=== PATIENT | male | born 1960 | race Caucasian/White ===

== ENCOUNTER 2017-04-27 10:40 | Emergency (ER) | payer MEDICARE, MEDICAID ==
[2017-04-27 11:41] VITALS: BP 129/70
--- NOTE | 2017-04-27 13:22 | EDM.PDOC ---
ED HPI GENERAL MEDICAL PROBLEM - General Chief Complaint: General Stated Complaint: DETOX Time Seen by Provider: 04/27/17 11:30 Source of Information: Reports: Patient, Family - History of Present Illness INITIAL COMMENTS - FREE TEXT/NARRATIVE: This is a 56yo M here for alcoholism. He would like to go to detox. Patient is present with his brother. His last drink was last night. He has tried to quit in the past with severe tremors and withdraw symptoms. Duration: Chronic - Related Data Allergies Allergy/AdvReac Type Severity Reaction Status Date / Time aspirin Allergy Severe Nausea Verified 04/27/17 11:34 Home Meds: Home Meds lamoTRIgine [Lamotrigine] 25 mg PO DAILY 10/21/14 [History] ClonazePAM [KlonoPIN] 1 mg PO BID 04/27/17 [History] Omeprazole 20 mg PO DAILY 04/27/17 [History] Social & Family History - Tobacco Use Smoking Status *Q: Heavy Tobacco Smoker Years of Tobacco use: 30 Used Tobacco, but Quit: No Month Tobacco Last Used: October Second Hand Smoke Exposure: No - Alcohol Use Days Per Week of Alcohol Use: 7 Number of Drinks Per Day: 6 Total Drinks Per Week: 42 - Recreational Drug Use Recreational Drug Use: No ED ROS GENERAL - Review of Systems Review Of Systems: ROS reveals no pertinent complaints other than HPI. ED EXAM, GENERAL - Physical Exam Exam: See Below Exam Limited By: No Limitations General Appearance: Alert, WD/WN, No Apparent Distress Ears: Normal External Exam Nose: Normal Inspection Throat/Mouth: Normal Inspection Head: Atraumatic, Normocephalic Neck: Normal Inspection Respiratory/Chest: No Respiratory Distress, Lungs Clear, Normal Breath Sounds Cardiovascular: Normal Peripheral Pulses, Regular Rate, Rhythm Extremities: Normal Inspection Neurological: Alert, Oriented, CN II-XII Intact Course - Vital Signs Last Recorded V/S: Last Vital Signs Temp 37.0 C 04/27/17 11:29 Pulse 96 04/27/17 11:41 Resp BP 129/70 04/27/17 11:41 Pulse Ox 98 04/27/17 11:41 - Orders/Labs/Meds Labs: Laboratory Tests 04/27/17 04/27/17 04/27/17 Range/Units 11:15 11:30 11:30 WBC 4.5 (4.0-11.0) K/uL RBC 3.43 L (4.50-6.50) M/uL Hgb 11.3 L (13.0-18.0) g/dL Hct 32.0 L (40.0-54.0) % MCV 93 (76-96) fL MCH 32.9 H (27.0-32.0) pg MCHC 35.3 H (31.0-35.0) g/dL RDW 14.0 (11.0-16.0) % Plt Count 63 L D (150-400) K/uL MPV 10.6 H (6.0-10.0) fL Neut % (Auto) 70.1 H (45.0-70.0) % Lymph % (Auto) 14.5 L (20.0-40.0) % [place] % (Auto) 13.0 H (3.0-10.0) % Eos % (Auto) 1.1 (1.0-5.0) % Baso % (Auto) 1.3 H (0.0-0.5) % Neut # (Auto) 3.18 (2.00-7.50) K/uL Lymph # (Auto) 0.66 L (1.50-4.00) K/uL [place] # (Auto) 0.59 (0.20-0.80) K/uL Eos # (Auto) 0.05 (0.04-0.40) K/uL Baso # (Auto) 0.06 (0.02-0.10) K/uL Sodium 132 L (136-145) mmol/L Potassium 3.3 L (3.5-5.1) mmol/L Chloride 94 L (98-107) mmol/L Carbon Dioxide 22.4 (21.0-32.0) mmol/L Anion Gap 18.9 H (5.0-15.0) mmol/L BUN 9 (8-26) mg/dL Creatinine 0.76 (0.70-1.30) mg/dL Est Cr Clr Drug Dosing 97.48 mL/min Estimated GFR (MDRD) > 60 (>60) MLS/MIN BUN/Creatinine Ratio 11.8 (6-25) Glucose 101 H (74-100) mg/dL Calcium 9.0 (8.5-10.1) mg/dL Total Bilirubin 1.9 H D (0.0-1.0) mg/dL AST 124 H (15-37) U/L ALT 98 H (12-78) U/L Alkaline Phosphatase 140 H (46-116) U/L Total Protein 6.5 (6.4-8.2) g/dL Albumin 3.7 (3.4-5.0) g/dL Globulin 2.8 (2.2-4.2) g/dL Albumin/Globulin Ratio 1.3 (0.8-2.0) TSH, Ultra Sensitive 1.275 D (0.358-3.740) uIU/mL Urine Opiates Screen Negative (NEGATIVE) Ur Oxycodone Screen Negative (NEGATIVE) Urine Methadone Screen Negative (NEGATIVE) U Acetaminophen Screen Negative (NEGATIVE) Ur Barbiturates Screen Negative (NEGATIVE) Ur Tricyclics Screen Negative (NEGATIVE) Ur Phencyclidine Scrn Negative (NEGATIVE) Ur Amphetamine Screen Negative (NEGATIVE) U Methamphetamines Scrn Negative (NEGATIVE) U Benzodiazepines Scrn Negative (NEGATIVE) U Cocaine Metab Screen Negative (NEGATIVE) U Marijuana (THC) Screen Negative (NEGATIVE) Ethyl Alcohol 25.0 H (0.0-0.0) mg/dL Departure - Departure Time of Disposition: 13:00 Disposition: DC/Tfer to Inpt Rehab Fac 62 Condition: Good Clinical Impression: Alcohol abuse - Discharge Information Referrals: PCP,None [Primary Care Provider] - Forms: ED Department Discharge - Problem List & Annotations (1) Alcohol abuse SNOMED Code(s): 49986461 Code(s): F10.10 - ALCOHOL ABUSE, UNCOMPLICATED Status: Acute Current Visit: Yes - Problem List Review Problem List Initiated/Reviewed/Updated: Yes - Assessment/Plan Plan: Patient to be discharged for brother to take him to [facility]. Patient and brother agree with plan of care. Lab results given to patient for [facility]. Patient in very stable condition, no DT or signs of DT. He drank last night but has a low ETOH level. Informed [facility] or anemia and labs.
== END 2017-04-27 12:25 ==
LOC: LB.ED 10:40
DX: F10.10 Alcohol abuse, uncomplicated (principal); F17.200 Nicotine dependence, unspecified, uncomplicated; Z79.899 Other long term (current) drug therapy; Z88.6 Allergy status to analgesic agent; Y90.1 Blood alcohol level of 20-39 mg/100 ml
CPT/HCPCS: 36415; 80053; 80307; 84443; 85025; 99284; G0480; 99283

== ENCOUNTER 2018-02-13 08:52 | Emergency (ER) | payer MEDICARE, MEDICAID ==
[2018-02-13 09:19] VITALS: BP 110/68
--- NOTE | 2018-02-13 16:16 | ER ---
Date of Service: 02/13/2018 HISTORY OF PRESENT ILLNESS: The patient is a 57-year-old male who comes in today with a chief complaint of a bee sting. He notes it stung him on the left hand last night about 8 o'clock. His hand has fairly steadily swelled up since that time. He is not short of breath. He does not have any fevers or chills. The hand is a slightly tender, but not particularly painful. He has no other issues going. PHYSICAL EXAMINATION: GENERAL: He is alert, oriented, no apparent distress. VITAL SIGNS: Temperature is 97.7, blood pressure is 110/68, pulse is 74, respirations 18, O2 saturation is 97.1. EXTREMITIES: His hand is swollen over the knuckles and fingers, a little bit up on to the wrist. A couple of inches down on the wrist, there is minimal erythema. It is mildly warm and tender. There is no red streaking. ASSESSMENT: Bee sting, most likely it is secondary reaction to the bee sting. I did discuss with the patient that it is unlikely in this time frame that it is infected and it is much more likely to be a local reaction. He can take some Benadryl, put an ice pack on it, basically symptomatic treatment. If it is not getting better by tomorrow, would have him return to clinic or for worsening symptoms. RAÚL/VIKY /[id number] MTDD
== END 2018-02-13 09:28 | disposition home or self-care (01) ==
LOC: LB.ED 08:52
DX: T63.441A Toxic effect of venom of bees, accidental (unintentional), initial encounter (principal)
CPT/HCPCS: 99282

== ENCOUNTER 2019-11-13 23:06 | Emergency (ER) | payer MEDICARE, MEDICAID ==
[2019-11-13] MEDS ORDERED: Ketorolac 30 MG/ML SDV IM ONE (23:25)
[2019-11-13] MEDS ORDERED: Ketorolac 30 MG/ML SDV ONE (23:35)
[2019-11-14] MEDS ORDERED: Sodium Chloride 0.9% 10 ML Syringe FLUSH PRN (00:30)
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
[2019-11-14] MEDS: fentaNYL 100 MCG/2 ML SDV IVPUSH PRN ×2 (00:37→01:09)
[2019-11-14 02:42] VITALS: BP 117/79; PULSE 99
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
--- NOTE | 2019-11-14 07:51 | CR ---
DATE OF SERVICE: 11/13/19 CLINICAL DATA: hip pain LEFT HIP AND FEMUR: There is a healed fracture through the distal femoral diaphysis that is fixed internally with an intramedullary raji. There are mild osteoarthritic changes of the left hip joint. There is subtle lucency in the left subcapital femoral neck region. The possibility of a fracture should be considered. CT scan may be helpful. [id number] [facility]
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
== END 2019-11-14 03:30 ==
LOC: LB.ED 23:06
DX: S72.052A Unspecified fracture of head of left femur, initial encounter for closed fracture (principal); S00.83XA Contusion of other part of head, initial encounter; S00.31XA Abrasion of nose, initial encounter; S80.211A Abrasion, right knee, initial encounter; S80.212A Abrasion, left knee, initial encounter; Z88.8 Allergy status to other drugs, medicaments and biological substances; Z91.018 Allergy to other foods; Z79.899 Other long term (current) drug therapy; W01.0XXA Fall on same level from slipping, tripping and stumbling without subsequent striking against object, initial encounter; Y93.01 Activity, walking, marching and hiking
CPT/HCPCS: 70450; 73502; 73700; 96372; 96374; 96376; 99285; J1885; J3010

== ENCOUNTER 2019-11-21 11:07 | Inpatient (IN) | payer MEDICARE, MEDICAID ==
[2019-11-21] MEDS ORDERED: Albuterol/Ipratropium 3.0-0.5 MG/3 ML Neb Soln INH PRN (14:33)
[2019-11-21] MEDS: Ibuprofen 200 MG Tab PO PRN (20:34)
[2019-11-21] MEDS: oxyCODONE 5 MG Tab PO PRN (20:35)
[2019-11-21] MEDS: traZODone 50 MG Tab PO PRN (20:36)
[2019-11-21] MEDS: Calcium Carbonate/Vitamin D3 1500 MG-400 Units Tab PO SCH (21:23)
--- NOTE | 2019-11-22 02:17 | ADMIT ---
HISTORY OF PRESENT ILLNESS: This 58-year-old male was admitted on swing bed status this evening. He is status post ORIF of the left hip. Date of surgery, November 17, 2019. The patient fell and sustained a hip fracture as well as a contusion injury to the left side of the druze area. The patient tells me that his pain is a little worse, but because of the trip here from the surgical center, he does have pain medications and states they have been working. The patient tells me he is able to walk with a walker a little bit now enough to get around in the room and going to the bathroom. He rates his pain a 7/10. The patient tells me he feels alright. PHYSICAL EXAMINATION: VITAL SIGNS: Revealed temp 97.8, blood pressure 154/89, O2 sats 99%, pulse 89, respirations 18. Examining the patient's left hip area reveals an incision on the lateral aspect of the upper thigh that is covered with a dressing. The dressing is intact. There is no sign of redness around the dressing. There is some bruising on the posterior aspect of the proximal thigh. The patient has no numbness, tingling or pain distal to the knee. LUNGS: Clear. SKIN: Warm and dry. The patient is admitted for swing bed status mainly for PT and OT. This will be ordered tomorrow I believe. No further measures are needed at this time. CHARLOTTE/VIKY /[id number]
[2019-11-22] MEDS ORDERED: Tuberculin, PPD 5 Units/0.1 ML 1 ML MDV IDERM ONE (08:00)
[2019-11-22] MEDS: Omeprazole 20 MG Cap.CR PO SCH (08:07)
[2019-11-22] MEDS: Calcium Carbonate/Vitamin D3 1500 MG-400 Units Tab PO SCH ×2 (08:07→18:18)
[2019-11-22] MEDS: Cholecalciferol (Vitamin D3) 25 MCG Tab PO SCH (08:08)
[2019-11-22] MEDS: lamoTRIgine 25 MG Tab PO SCH (08:11)
[2019-11-22] MEDS: Enoxaparin 40 MG/0.4 ML Syringe SUBCUT SCH (08:18)
--- NOTE | 2019-11-22 09:17 | PCM.PN ---
- General Info Date of Service: 11/22/19 Subjective Update: pt admitted last night for swing bed status from [place], [place] post surgical ORIF L hip [id number]. pt states overall he is feeling better, not reaching his baseline from before injury quite yet. Functional Status: Reports: Pain Controlled, Tolerating Diet, Ambulating, Urinating, Incentive Spirometry - Review of Systems General: Reports: Weakness (left leg weakness) HEENT: Reports: No Symptoms Pulmonary: Reports: No Symptoms Cardiovascular: Reports: No Symptoms Gastrointestinal: Reports: No Symptoms Genitourinary: Reports: No Symptoms Musculoskeletal: Reports: Leg Pain (some surgical incision site pain) Skin: Reports: No Symptoms Neurological: Reports: No Symptoms Psychiatric: Reports: No Symptoms - Patient Data Vitals - Most Recent: Last Vital Signs Temp 97.6 F 11/22/19 08:00 Pulse 99 11/22/19 08:00 Resp 16 11/22/19 08:00 BP 145/86 H 11/22/19 08:00 Pulse Ox 94 L 11/22/19 08:00 Weight - Most Recent: 123 lb 6.4 oz Lab Results Last 24 Hours: Laboratory Results - last 24 hr 11/22/19 11/22/19 Range/Units 07:20 07:20 WBC 4.1 D (4.0-11.0) K/uL RBC 2.67 L (4.50-6.50) M/uL Hgb 8.8 L D (13.0-18.0) g/dL Hct 25.6 L D (40.0-54.0) % MCV 96 (76-96) fL MCH 33.0 H (27.0-32.0) pg MCHC 34.4 (31.0-35.0) g/dL RDW 13.4 (11.0-16.0) % Plt Count 400 D (150-400) K/uL MPV 8.9 (6.0-10.0) fL Neut % (Auto) 55.8 (45.0-70.0) % Lymph % (Auto) 20.6 (20.0-40.0) % [place] % (Auto) 21.9 H (3.0-10.0) % Eos % (Auto) 0.7 L (1.0-5.0) % Baso % (Auto) 1.0 H (0.0-0.5) % Neut # (Auto) 2.27 (2.00-7.50) K/uL Lymph # (Auto) 0.84 L (1.50-4.00) K/uL [place] # (Auto) 0.89 H (0.20-0.80) K/uL Eos # (Auto) 0.03 L (0.04-0.40) K/uL Baso # (Auto) 0.04 (0.02-0.10) K/uL Sodium 140 (136-145) mmol/L Potassium 3.3 L D (3.5-5.1) mmol/L Chloride 102 (98-107) mmol/L Carbon Dioxide 32.3 H D (21.0-32.0) mmol/L Anion Gap 9.0 (5.0-15.0) mmol/L BUN 5 L D (8-26) mg/dL Creatinine 0.61 L D (0.70-1.30) mg/dL Est Cr Clr Drug Dosing 104.50 mL/min Estimated GFR (MDRD) > 60 (>60) MLS/MIN BUN/Creatinine Ratio 8.2 (6-25) Glucose 106 H D (74-100) mg/dL Calcium 8.0 L (8.5-10.1) mg/dL Med Orders - Current: Current Medications Albuterol (Ventolin Hfa) 8 gm INH Q6H PRN PRN Reason: Shortness of Breath Albuterol/Ipratropium (Duoneb 3.0-0.5 Mg/3 Ml) 3 ml INH QID PRN PRN Reason: Shortness of Breath Calcium Carbonate (Caltrate 600+D 1500 Mg-400 Units) 1 tab PO BIDMEALS [facility] Last Admin: 11/22/19 08:07 Dose: 1 tab Cholecalciferol (Vitamin D3) 25 mcg PO DAILY [facility] Last Admin: 11/22/19 08:08 Dose: 25 mcg Enoxaparin Sodium (Lovenox) 40 mg SUBCUT DAILY [facility] Stop: 12/18/19 23:59 Last Admin: 11/22/19 08:18 Dose: 40 mg Ibuprofen (Motrin) 200 mg PO DAILY PRN PRN Reason: Pain (mild 1-3) Last Admin: 11/21/19 20:34 Dose: 200 mg Lamotrigine (Lamotrigine) 25 mg PO DAILY [facility] Last Admin: 11/22/19 08:11 Dose: 25 mg Omeprazole (Omeprazole) 20 mg PO DAILY [facility] Last Admin: 11/22/19 08:07 Dose: 20 mg Oxycodone HCl (Oxycodone) 5 mg PO Q6H PRN PRN Reason: MODERATE PAIN Last Admin: 11/21/19 20:35 Dose: 5 mg Potassium Chloride (Klor-Con 10) 10 meq PO BID [facility] Senna/Docusate Sodium (Senna Plus) 2 tab PO BID [facility] Last Admin: 11/22/19 08:07 Dose: 2 tab Trazodone HCl (Trazodone) 50 mg PO BEDTIME PRN PRN Reason: INSOMNIA Last Admin: 11/21/19 20:36 Dose: 50 mg Discontinued Medications Tuberculin PPD (Aplisol) 5 unit IDERM ONETIME ONE Stop: 11/22/19 08:01 Last Admin: 11/22/19 08:49 Dose: 5 unit - Exam General: Alert, Oriented, Cooperative HEENT: Pupils Equal, Pupils Reactive, EOMI, Mucous Membr. Moist/[place] Neck: Supple Lungs: Normal Respiratory Effort, Wheezing (slight expiratory wheeze) Cardiovascular: Regular Rate, Regular Rhythm GI/Abdominal Exam: Normal Bowel Sounds, Soft, Non-Tender, No Organomegaly, No Distention, No Abnormal Bruit, No Mass, Pelvis Stable (Male) Exam: No Hernia, Normal Inspection, Normal Prostate, Circumcised Back Exam: Normal Inspection, Full Range of Motion Extremities: Normal Inspection, Normal Range of Motion, Non-Tender, No Pedal Edema, Normal Capillary Refill Peripheral Pulses: 2+: Radial (L), Radial (R), Posterior Tibial (L), Posterior Tibial (R) Skin: Warm, Dry, Intact Wound/Incisions: Healing Well, Dressing Dry and Intact (no surrounding edema or erythema) Neurological: No New Focal Deficit Psy/Mental Status: Alert, Normal Affect, Normal Mood Sepsis Event Note - Evaluation Sepsis Screening Result: No Definite Risk - Focused Exam Vital Signs: Vital Signs Temp Pulse Resp BP Pulse Ox 11/22/19 08:00 97.6 F 99 16 145/86 H 94 L Date Exam was Performed: 11/22/19 Time Exam was Performed: 10:33 - Problem List & Annotations (1) Fracture of femoral head SNOMED Code(s): 975202192 Code(s): S72.059A - UNSP FRACTURE OF HEAD OF UNSP FEMUR, INIT FOR CLOS FX Status: Acute Priority: High Current Visit: Yes Qualifiers: Fracture type: closed Laterality: left Fracture healing: with routine healing - Problem List Review Problem List Initiated/Reviewed/Updated: Yes - My Orders Last 24 Hours: My Active Orders 11/22/19 08:24 OT Evaluation and Treatment [CONS] Routine PT Evaluation and Treatment [CONS] Routine 11/22/19 20:00 Potassium Chloride [Klor-Con 10] 10 meq PO BID - Assessment Assessment:: Status post ORIF left hip fracture from surgery 17 November 2019. - Plan Plan:: Admit swing bed status for PT/OT strengthening of activities daily living, anti- inflammatories for pain control, dressing changes as needed.
[2019-11-22] MEDS: Potassium Chloride 10 MEQ Tab.ER PO SCH (19:54)
[2019-11-22] MEDS: oxyCODONE 5 MG Tab PO PRN (19:54)
[2019-11-22] MEDS: traZODone 50 MG Tab PO PRN (19:54)
[2019-11-23] MEDS: oxyCODONE 5 MG Tab PO PRN ×3 (04:34→22:12)
[2019-11-23] MEDS: Ibuprofen 200 MG Tab PO PRN ×2 (04:35→09:31)
[2019-11-23] MEDS: Calcium Carbonate/Vitamin D3 1500 MG-400 Units Tab PO SCH ×2 (08:02→19:09)
[2019-11-23] MEDS: Potassium Chloride 10 MEQ Tab.ER PO SCH ×2 (08:03→19:08)
[2019-11-23] MEDS: lamoTRIgine 25 MG Tab PO SCH (08:03)
[2019-11-23] MEDS: Cholecalciferol (Vitamin D3) 25 MCG Tab PO SCH (08:04)
[2019-11-23] MEDS: Omeprazole 20 MG Cap.CR PO SCH (08:04)
[2019-11-23] MEDS: Enoxaparin 40 MG/0.4 ML Syringe SUBCUT SCH (08:06)
[2019-11-24] MEDS: oxyCODONE 5 MG Tab PO PRN ×2 (07:52→13:49)
[2019-11-24] MEDS: Ibuprofen 200 MG Tab PO PRN ×3 (07:55→20:40)
[2019-11-24] MEDS: Potassium Chloride 10 MEQ Tab.ER PO SCH ×2 (07:56→23:05)
[2019-11-24] MEDS: Omeprazole 20 MG Cap.CR PO SCH (07:57)
[2019-11-24] MEDS: Calcium Carbonate/Vitamin D3 1500 MG-400 Units Tab PO SCH ×2 (07:57→18:19)
[2019-11-24] MEDS: Cholecalciferol (Vitamin D3) 25 MCG Tab PO SCH (07:58)
[2019-11-24] MEDS: lamoTRIgine 25 MG Tab PO SCH (07:59)
[2019-11-24] MEDS: Enoxaparin 40 MG/0.4 ML Syringe SUBCUT SCH (08:00)
[2019-11-24] MEDS ORDERED: Acetaminophen 325 MG Tab PO PRN (14:02)
[2019-11-25] MEDS: oxyCODONE 5 MG Tab PO PRN (07:48)
[2019-11-25] MEDS: Omeprazole 20 MG Cap.CR PO SCH (07:48)
[2019-11-25] MEDS: lamoTRIgine 25 MG Tab PO SCH (07:48)
[2019-11-25] MEDS: Potassium Chloride 10 MEQ Tab.ER PO SCH ×2 (07:48→20:41)
[2019-11-25] MEDS: Calcium Carbonate/Vitamin D3 1500 MG-400 Units Tab PO SCH ×2 (07:48→17:28)
[2019-11-25] MEDS: Cholecalciferol (Vitamin D3) 25 MCG Tab PO SCH (07:48)
[2019-11-25] MEDS: Enoxaparin 40 MG/0.4 ML Syringe SUBCUT SCH (07:49)
[2019-11-26] MEDS: oxyCODONE 5 MG Tab PO PRN ×2 (00:21→23:44)
[2019-11-26] MEDS: Calcium Carbonate/Vitamin D3 1500 MG-400 Units Tab PO SCH ×2 (07:57→17:05)
[2019-11-26] MEDS: Enoxaparin 40 MG/0.4 ML Syringe SUBCUT SCH (07:57)
[2019-11-26] MEDS: lamoTRIgine 25 MG Tab PO SCH (07:57)
[2019-11-26] MEDS: Cholecalciferol (Vitamin D3) 25 MCG Tab PO SCH (07:57)
[2019-11-26] MEDS: Omeprazole 20 MG Cap.CR PO SCH (07:57)
[2019-11-26] MEDS: Potassium Chloride 10 MEQ Tab.ER PO SCH ×2 (07:57→21:00)
[2019-11-26] MEDS: Ibuprofen 200 MG Tab PO PRN (13:26)
[2019-11-27] MEDS: lamoTRIgine 25 MG Tab PO SCH (07:18)
[2019-11-27] MEDS: Potassium Chloride 10 MEQ Tab.ER PO SCH ×2 (07:18→19:29)
[2019-11-27] MEDS: Cholecalciferol (Vitamin D3) 25 MCG Tab PO SCH (07:18)
[2019-11-27] MEDS: Calcium Carbonate/Vitamin D3 1500 MG-400 Units Tab PO SCH ×2 (07:18→17:55)
[2019-11-27] MEDS: Omeprazole 20 MG Cap.CR PO SCH (07:18)
[2019-11-27] MEDS: Enoxaparin 40 MG/0.4 ML Syringe SUBCUT SCH (07:19)
[2019-11-27] MEDS: oxyCODONE 5 MG Tab PO PRN ×3 (07:28→19:28)
[2019-11-27] MEDS ORDERED: Acetaminophen/HYDROcodone 325-10 MG Tab ONE (10:54)
[2019-11-27] MEDS ORDERED: Acetaminophen/HYDROcodone 325-5 MG Tab ONE (10:55)
[2019-11-27] MEDS: Ibuprofen 200 MG Tab PO PRN (15:33)
[2019-11-28] MEDS: Ibuprofen 200 MG Tab PO PRN ×2 (08:29→14:10)
[2019-11-28] MEDS: Potassium Chloride 10 MEQ Tab.ER PO SCH ×2 (08:29→19:29)
[2019-11-28] MEDS: Omeprazole 20 MG Cap.CR PO SCH (08:29)
[2019-11-28] MEDS: Calcium Carbonate/Vitamin D3 1500 MG-400 Units Tab PO SCH ×2 (08:31→17:37)
[2019-11-28] MEDS: Enoxaparin 40 MG/0.4 ML Syringe SUBCUT SCH (08:31)
[2019-11-28] MEDS: lamoTRIgine 25 MG Tab PO SCH (08:31)
[2019-11-28] MEDS: Cholecalciferol (Vitamin D3) 25 MCG Tab PO SCH (08:32)
--- NOTE | 2019-11-28 11:06 | CR ---
DATE OF SERVICE: 11/28/19 CLINICAL DATA: post op day 11, worsening L hip pain LEFT HIP: Comparison is made to a prior exam dated 11/13/19. The patient is status post internal fixation of the left hip fracture. The fracture fragments are in anatomic alignment and position. The exam is otherwise unchanged from the prior. [id number] [facility]
[2019-11-29] MEDS: Cholecalciferol (Vitamin D3) 25 MCG Tab PO SCH (08:00)
[2019-11-29] MEDS: Potassium Chloride 10 MEQ Tab.ER PO SCH ×2 (08:00→20:29)
[2019-11-29] MEDS: Omeprazole 20 MG Cap.CR PO SCH (08:00)
[2019-11-29] MEDS: Enoxaparin 40 MG/0.4 ML Syringe SUBCUT SCH (08:00)
[2019-11-29] MEDS: lamoTRIgine 25 MG Tab PO SCH (08:00)
[2019-11-29] MEDS: Calcium Carbonate/Vitamin D3 1500 MG-400 Units Tab PO SCH ×2 (08:00→17:00)
[2019-11-29] MEDS: oxyCODONE 5 MG Tab PO PRN (23:37)
[2019-11-30] MEDS: Omeprazole 20 MG Cap.CR PO SCH (07:32)
[2019-11-30] MEDS: Potassium Chloride 10 MEQ Tab.ER PO SCH ×2 (07:33→19:25)
[2019-11-30] MEDS: lamoTRIgine 25 MG Tab PO SCH (07:33)
[2019-11-30] MEDS: Calcium Carbonate/Vitamin D3 1500 MG-400 Units Tab PO SCH ×2 (07:33→17:46)
[2019-11-30] MEDS: Cholecalciferol (Vitamin D3) 25 MCG Tab PO SCH (07:33)
[2019-11-30] MEDS: Enoxaparin 40 MG/0.4 ML Syringe SUBCUT SCH (07:34)
[2019-11-30] MEDS: Albuterol 8 GM Inhaler INH PRN (07:35)
[2019-11-30] MEDS: oxyCODONE 5 MG Tab PO PRN ×3 (07:36→22:06)
[2019-12-01] MEDS: oxyCODONE 5 MG Tab PO PRN (07:43)
[2019-12-01] MEDS: Calcium Carbonate/Vitamin D3 1500 MG-400 Units Tab PO SCH ×2 (07:43→17:00)
[2019-12-01] MEDS: Omeprazole 20 MG Cap.CR PO SCH (07:43)
[2019-12-01] MEDS: Potassium Chloride 10 MEQ Tab.ER PO SCH ×2 (07:44→19:22)
[2019-12-01] MEDS: Cholecalciferol (Vitamin D3) 25 MCG Tab PO SCH (07:44)
[2019-12-01] MEDS: Enoxaparin 40 MG/0.4 ML Syringe SUBCUT SCH (07:44)
[2019-12-01] MEDS: lamoTRIgine 25 MG Tab PO SCH (07:44)
--- NOTE | 2019-12-01 11:07 | PCM.DCSUM1 ---
Discharge Summary - Hospital Course Free Text/Narrative:: pt has been swingbed since 21 November and working with PT and OT since after ORIF left hip surgery 17 November 2019. initially pt was struggling with pain prior to therapy but has since improved greatly and currently only needing 2-3 tabs of oxycodone per day. on 27 November pt stated new hip pain when initiating ambulation, with concern for onset of osteonecrosis with pt's history of alcoholism a xray of left hip was done showing no changes from previous. later that day pt states his symptoms had improved after standing momentarily prior to ambulation. symptoms have mostly resolved since. pt was D/C from OT yesterday after successful meal cooking. will be d/c from PT today. plan to discharge from swingbed home tomorrow after lunch. - Discharge Data Discharge Date: 12/02/19 Discharge Disposition: Home, Self-Care 01 Condition: Good - Referral to Home Health Primary Care Physician: PCP None - Discharge Diagnosis/Problem(s) (1) Fracture of femoral head SNOMED Code(s): 472070904 ICD Code: S72.059A - UNSP FRACTURE OF HEAD OF UNSP FEMUR, INIT FOR CLOS FX Status: Acute Priority: High Current Visit: Yes Qualifiers: Fracture type: closed Laterality: left Fracture healing: with routine healing - Patient Summary/Data Consults: Consultations 11/22/19 08:24 OT Evaluation and Treatment [CONS] Routine Please Evaluate and Treat. OT Reason for Consult: Strengthening This query below is only for informational purposes and is not editable. Admission Diagnosis/Problem: Weakness of left lower extremity PT Evaluation and Treatment [CONS] Routine Please Evaluate and Treat. PT Reason for Consult: Strengthening This query below is only for informational purposes and is not editable. Admission Diagnosis/Problem: Weakness of left lower extremity - Patient Instructions Diet: Usual Diet as Tolerated Activity: As Tolerated Showering/Bathing: May Shower Wound/Incision Care: Keep Operative Site/Wound Site Clean and Dry Notify Provider of: Fever, Swelling and Redness, Drainage - Discharge Plan *PRESCRIPTION DRUG MONITORING PROGRAM REVIEWED*: Yes *COPY OF PRESCRIPTION DRUG MONITORING REPORT IN PATIENT IWONA: No Prescriptions/Med Rec: Aspirin 325 mg PO DAILY #30 tab Calcium Carbonate/Vitamin D3 [Caltrate 600+D 1500 MG-400 Units] 1 tab PO BIDMEALS #60 tablet Potassium Chloride [Klor-Con 10] 10 meq PO BID #60 tab.er oxyCODONE 5 mg PO TID PRN #12 tablet PRN Reason: MODERATE PAIN Albuterol [Ventolin HFA] 8 gm INH Q6H PRN #1 inhaler PRN Reason: Shortness Of Breath Cholecalciferol (Vitamin D3) [Vitamin D3] 25 mcg PO DAILY #30 tablet Home Medications: Home Meds lamoTRIgine [Lamotrigine] 25 mg PO DAILY 10/21/14 [History] ClonazePAM [KlonoPIN] 1 mg PO BID 04/27/17 [History] Omeprazole 20 mg PO DAILY 04/27/17 [History] Albuterol [Proventil Neb Soln] 0.63 mg NEB TID 02/13/18 [History] Acetaminophen [Tylenol] 650 mg PO Q6H PRN tablet 12/01/19 [Rx] Albuterol [Ventolin HFA] 8 gm INH Q6H PRN #1 inhaler 12/01/19 [Rx] Aspirin 325 mg PO DAILY #30 tab 12/01/19 [Rx] Calcium Carbonate/Vitamin D3 [Caltrate 600+D 1500 MG-400 Units] 1 tab PO BIDMEALS #60 tablet 12/01/19 [Rx] Cholecalciferol (Vitamin D3) [Vitamin D3] 25 mcg PO DAILY #30 tablet 12/01/19 [Rx] Ibuprofen [Motrin] 600 mg PO Q6H PRN tablet 12/01/19 [Rx] Omeprazole 20 mg PO DAILY cap.cr 12/01/19 [Rx] Potassium Chloride [Klor-Con 10] 10 meq PO BID #60 tab.er 12/01/19 [Rx] lamoTRIgine 25 mg PO DAILY tablet 12/01/19 [Rx] oxyCODONE 5 mg PO TID PRN #12 tablet 12/01/19 [Rx] Oxygen Therapy Mode: Room Air - Discharge Summary/Plan Comment DC Time >30 min.: Yes Discharge Summary/Plan Comment: pt will follow up with orthopedics January 03 in [place] PT as outpatient recommend follow up with PCP in the next 3-4 weeks buy a walking cane, if desired lizeth have been removed, keep this area clean and dry. steri strips applied and will fall off in next 5-7 days on their own. new RX: ASA 325 QD for the next month Vit D3 25mcg QD 30 days albuterol INH Kdur 10mEq BID 30 days Ca Carbonate/ vit D3 BID 30 days 2-wheeled walker - Patient Data Vitals - Most Recent: Last Vital Signs Temp 97.7 F 12/01/19 07:47 Pulse 90 12/01/19 07:47 Resp 16 12/01/19 07:47 BP 140/87 12/01/19 07:47 Pulse Ox 98 12/01/19 07:47 Weight - Most Recent: 123 lb Med Orders - Current: Current Medications Acetaminophen (Tylenol) 650 mg PO Q6H PRN PRN Reason: Pain Last Admin: 11/24/19 23:08 Dose: 650 mg Documented by: Albuterol (Ventolin Hfa) 8 gm INH Q6H PRN PRN Reason: Shortness of Breath Last Admin: 11/30/19 07:35 Dose: 2 puff Documented by: Albuterol/Ipratropium (Duoneb 3.0-0.5 Mg/3 Ml) 3 ml INH QID PRN PRN Reason: Shortness of Breath Calcium Carbonate (Caltrate 600+D 1500 Mg-400 Units) 1 tab PO BIDMEALS [facility] Last Admin: 12/01/19 07:43 Dose: 1 tab Documented by: Cholecalciferol (Vitamin D3) 25 mcg PO DAILY [facility] Last Admin: 12/01/19 07:44 Dose: 25 mcg Documented by: Enoxaparin Sodium (Lovenox) 40 mg SUBCUT DAILY [facility] Stop: 12/18/19 23:59 Last Admin: 12/01/19 07:44 Dose: 40 mg Documented by: Ibuprofen (Motrin) 200 mg PO DAILY PRN PRN Reason: Pain (mild 1-3) Last Admin: 11/24/19 07:55 Dose: 200 mg Documented by: Ibuprofen (Motrin) 600 mg PO Q6H PRN PRN Reason: Pain Last Admin: 11/28/19 14:10 Dose: 600 mg Documented by: Lamotrigine (Lamotrigine) 25 mg PO DAILY [facility] Last Admin: 12/01/19 07:44 Dose: 25 mg Documented by: Omeprazole (Omeprazole) 20 mg PO DAILY [facility] Last Admin: 12/01/19 07:43 Dose: 20 mg Documented by: Oxycodone HCl (Oxycodone) 5 mg PO Q6H PRN PRN Reason: MODERATE PAIN Last Admin: 12/01/19 07:43 Dose: 5 mg Documented by: Potassium Chloride (Klor-Con 10) 10 meq PO BID [facility] Last Admin: 12/01/19 07:44 Dose: 10 meq Documented by: Senna/Docusate Sodium (Senna Plus) 2 tab PO BID PRN PRN Reason: Diarrhea Trazodone HCl (Trazodone) 50 mg PO BEDTIME PRN PRN Reason: INSOMNIA Last Admin: 11/22/19 19:54 Dose: 50 mg Documented by: Discontinued Medications Hydrocodone Bitart/Acetaminophen ([place] 325-10 Mg) Confirm Administered Dose 1 tab .ROUTE .STK-MED ONE Stop: 11/27/19 10:55 Last Admin: 11/27/19 15:28 Dose: Not Given Documented by: Hydrocodone Bitart/Acetaminophen ([place] 325-5 Mg) Confirm Administered Dose 1 tab .ROUTE .STK-MED ONE Stop: 11/27/19 10:56 Last Admin: 11/27/19 15:28 Dose: Not Given Documented by: Senna/Docusate Sodium (Senna Plus) 2 tab PO BID [facility] Last Admin: 11/24/19 07:56 Dose: 2 tab Documented by: Tuberculin PPD (Aplisol) 5 unit IDERM ONETIME ONE Stop: 11/22/19 08:01 Last Admin: 11/22/19 08:49 Dose: 5 unit Documented by: Discharge Operative/Procedures - Procedures Performed Operations/Procedure Comment: removal of lizeth: dressing removed, cleansed area with soapy water. 15 lizeth removed successfully. benzoin tincture applied surrounding site and steri strips applied. wound left open to air. pt tolerated well.
[2019-12-01] MEDS: Ibuprofen 200 MG Tab PO PRN (17:00)
[2019-12-02] MEDS: oxyCODONE 5 MG Tab PO PRN (07:41)
[2019-12-02] MEDS: Omeprazole 20 MG Cap.CR PO SCH (07:41)
[2019-12-02] MEDS: Calcium Carbonate/Vitamin D3 1500 MG-400 Units Tab PO SCH ×2 (07:42→17:04)
[2019-12-02] MEDS: lamoTRIgine 25 MG Tab PO SCH (07:42)
[2019-12-02] MEDS: Enoxaparin 40 MG/0.4 ML Syringe SUBCUT SCH (07:42)
[2019-12-02] MEDS: Potassium Chloride 10 MEQ Tab.ER PO SCH ×2 (07:42→19:01)
[2019-12-02] MEDS: Cholecalciferol (Vitamin D3) 25 MCG Tab PO SCH (07:43)
[2019-12-02] MEDS: Albuterol 8 GM Inhaler INH PRN (14:15)
[2019-12-03] MEDS: oxyCODONE 5 MG Tab PO PRN ×2 (07:22→19:52)
[2019-12-03] MEDS: Omeprazole 20 MG Cap.CR PO SCH (07:23)
[2019-12-03] MEDS: Potassium Chloride 10 MEQ Tab.ER PO SCH ×2 (07:24→19:53)
[2019-12-03] MEDS: Cholecalciferol (Vitamin D3) 25 MCG Tab PO SCH (07:24)
[2019-12-03] MEDS: lamoTRIgine 25 MG Tab PO SCH (07:24)
[2019-12-03] MEDS: Enoxaparin 40 MG/0.4 ML Syringe SUBCUT SCH (07:24)
[2019-12-03] MEDS: Calcium Carbonate/Vitamin D3 1500 MG-400 Units Tab PO SCH ×2 (07:24→17:06)
[2019-12-04] MEDS: Calcium Carbonate/Vitamin D3 1500 MG-400 Units Tab PO SCH ×2 (07:31→17:35)
[2019-12-04] MEDS: Omeprazole 20 MG Cap.CR PO SCH (07:31)
[2019-12-04] MEDS: Cholecalciferol (Vitamin D3) 25 MCG Tab PO SCH (07:31)
[2019-12-04] MEDS: Enoxaparin 40 MG/0.4 ML Syringe SUBCUT SCH (07:32)
[2019-12-04] MEDS: lamoTRIgine 25 MG Tab PO SCH (07:32)
[2019-12-04] MEDS: Potassium Chloride 10 MEQ Tab.ER PO SCH ×2 (08:04→19:47)
[2019-12-04] MEDS: Ibuprofen 200 MG Tab PO PRN ×2 (10:43→18:08)
[2019-12-05] MEDS: Calcium Carbonate/Vitamin D3 1500 MG-400 Units Tab PO SCH (07:30)
[2019-12-05] MEDS: Potassium Chloride 10 MEQ Tab.ER PO SCH (07:30)
[2019-12-05] MEDS: Omeprazole 20 MG Cap.CR PO SCH (07:30)
[2019-12-05] MEDS: lamoTRIgine 25 MG Tab PO SCH (07:30)
[2019-12-05] MEDS: Cholecalciferol (Vitamin D3) 25 MCG Tab PO SCH (07:31)
[2019-12-05] MEDS: Enoxaparin 40 MG/0.4 ML Syringe SUBCUT SCH (07:31)
[2019-12-05 08:26] VITALS: BP 127/78; PULSE 73
--- NOTE | 2019-12-05 12:45 | PCM.DCSUM1 ---
Discharge Summary - Hospital Course Free Text/Narrative:: Patient is a swing bed from ORIF left hip on 17 November 2019, he was originally slated for discharge home this last weekend but hospital staff abruptly learned that patient is not his own guardian but that his brother holds guardianship due to patient's mental health history. Although patient had stated readiness for discharge, he would share concerns with family members differently. By 30 November patient was although physically ready for discharge he was not mentally and would not have been a safe discharge home secondary to his mental health and lack of at home resources throughout the weekend. Patient's brother had set up resources for discharge today, patient will be discharging home with outpatient physical therapy, community nursing services, and newly set up telephone sources and life alert button patient will keep on himself in case of emergencies. - Discharge Data Discharge Date: 12/05/19 Discharge Disposition: Home, Self-Care 01 Condition: Good - Referral to Home Health Primary Care Physician: PCP None - Discharge Diagnosis/Problem(s) (1) Fracture of femoral head SNOMED Code(s): 249282996 ICD Code: S72.059A - UNSP FRACTURE OF HEAD OF UNSP FEMUR, INIT FOR CLOS FX Status: Acute Priority: High Qualifiers: Fracture type: closed Laterality: left Fracture healing: with routine healing - Patient Summary/Data Consults: Consultations 11/22/19 08:24 OT Evaluation and Treatment [CONS] Routine Please Evaluate and Treat. OT Reason for Consult: Strengthening This query below is only for informational purposes and is not editable. Admission Diagnosis/Problem: Weakness of left lower extremity PT Evaluation and Treatment [CONS] Routine Please Evaluate and Treat. PT Reason for Consult: Strengthening This query below is only for informational purposes and is not editable. Admission Diagnosis/Problem: Weakness of left lower extremity - Patient Instructions Diet: Usual Diet as Tolerated Activity: As Tolerated Showering/Bathing: May Shower Wound/Incision Care: Keep Operative Site/Wound Site Clean and Dry Notify Provider of: Fever, Swelling and Redness, Drainage - Discharge Plan *PRESCRIPTION DRUG MONITORING PROGRAM REVIEWED*: Yes *COPY OF PRESCRIPTION DRUG MONITORING REPORT IN PATIENT IWONA: No Prescriptions/Med Rec: Aspirin 325 mg PO DAILY #30 tab Calcium Carbonate/Vitamin D3 [Caltrate 600+D 1500 MG-400 Units] 1 tab PO BIDMEALS #60 tablet Potassium Chloride [Klor-Con 10] 10 meq PO BID #60 tab.er oxyCODONE 5 mg PO TID PRN #12 tablet PRN Reason: MODERATE PAIN Albuterol [Ventolin HFA] 8 gm INH Q6H PRN #1 inhaler PRN Reason: Shortness Of Breath Cholecalciferol (Vitamin D3) [Vitamin D3] 25 mcg PO DAILY #30 tablet Home Medications: Home Meds lamoTRIgine [Lamotrigine] 25 mg PO DAILY 10/21/14 [History] ClonazePAM [KlonoPIN] 1 mg PO BID 04/27/17 [History] Omeprazole 20 mg PO DAILY 04/27/17 [History] Albuterol [Proventil Neb Soln] 0.63 mg NEB TID 02/13/18 [History] Acetaminophen [Tylenol] 650 mg PO Q6H PRN tablet 12/01/19 [Rx] Albuterol [Ventolin HFA] 8 gm INH Q6H PRN #1 inhaler 12/01/19 [Rx] Aspirin 325 mg PO DAILY #30 tab 12/01/19 [Rx] Calcium Carbonate/Vitamin D3 [Caltrate 600+D 1500 MG-400 Units] 1 tab PO BIDMEALS #60 tablet 12/01/19 [Rx] Cholecalciferol (Vitamin D3) [Vitamin D3] 25 mcg PO DAILY #30 tablet 12/01/19 [Rx] Ibuprofen [Motrin] 600 mg PO Q6H PRN tablet 12/01/19 [Rx] Omeprazole 20 mg PO DAILY cap.cr 12/01/19 [Rx] Potassium Chloride [Klor-Con 10] 10 meq PO BID #60 tab.er 12/01/19 [Rx] lamoTRIgine 25 mg PO DAILY tablet 12/01/19 [Rx] oxyCODONE 5 mg PO TID PRN #12 tablet 12/01/19 [Rx] Oxygen Therapy Mode: Room Air - Discharge Summary/Plan Comment DC Time >30 min.: Yes - General Info Date of Service: 12/05/19 Admission Dx/Problem (Free Text: swingbed for PT/OT strengthening and ADLs post ORIF left hip on 17 November 2019. Subjective Update: pt admitted last night for swing bed status from [place], [place] post surgical ORIF L hip [id number]. pt states overall he is feeling great, he is highly motivated to be discharged home to continue outpatient services and rehab from his surgery. Patient denies new fevers, shortness of breath, worsening hip pain, drainage, new difficulties with ambulation. - Review of Systems General: Reports: Other (All other systems reviewed and found negative except for what is noted in HPI) - Patient Data Vitals - Most Recent: Last Vital Signs Temp 98.4 F 12/05/19 08:00 Pulse 73 12/05/19 08:00 Resp 16 12/05/19 08:00 BP 127/78 12/05/19 08:00 Pulse Ox 96 12/05/19 08:00 Weight - Most Recent: 117 lb 3.2 oz Med Orders - Current: Current Medications Acetaminophen (Tylenol) 650 mg PO Q6H PRN PRN Reason: Pain Last Admin: 11/24/19 23:08 Dose: 650 mg Documented by: Albuterol (Ventolin Hfa) 8 gm INH Q6H PRN PRN Reason: Shortness of Breath Last Admin: 12/02/19 14:15 Dose: 2 puff Documented by: Albuterol/Ipratropium (Duoneb 3.0-0.5 Mg/3 Ml) 3 ml INH QID PRN PRN Reason: Shortness of Breath Calcium Carbonate (Caltrate 600+D 1500 Mg-400 Units) 1 tab PO BIDMEALS [facility] Last Admin: 12/05/19 07:30 Dose: 1 tab Documented by: Cholecalciferol (Vitamin D3) 25 mcg PO DAILY [facility] Last Admin: 12/05/19 07:31 Dose: 25 mcg Documented by: Enoxaparin Sodium (Lovenox) 40 mg SUBCUT DAILY [facility] Stop: 12/18/19 23:59 Last Admin: 12/05/19 07:31 Dose: 40 mg Documented by: Ibuprofen (Motrin) 200 mg PO DAILY PRN PRN Reason: Pain (mild 1-3) Last Admin: 11/24/19 07:55 Dose: 200 mg Documented by: Ibuprofen (Motrin) 600 mg PO Q6H PRN PRN Reason: Pain Last Admin: 12/04/19 18:08 Dose: 600 mg Documented by: Lamotrigine (Lamotrigine) 25 mg PO DAILY [facility] Last Admin: 12/05/19 07:30 Dose: 25 mg Documented by: Omeprazole (Omeprazole) 20 mg PO DAILY [facility] Last Admin: 12/05/19 07:30 Dose: 20 mg Documented by: Oxycodone HCl (Oxycodone) 5 mg PO Q6H PRN PRN Reason: MODERATE PAIN Last Admin: 12/03/19 19:52 Dose: 5 mg Documented by: Potassium Chloride (Klor-Con 10) 10 meq PO BID [facility] Last Admin: 12/05/19 07:30 Dose: 10 meq Documented by: Senna/Docusate Sodium (Senna Plus) 2 tab PO BID PRN PRN Reason: Diarrhea Trazodone HCl (Trazodone) 50 mg PO BEDTIME PRN PRN Reason: INSOMNIA Last Admin: 11/22/19 19:54 Dose: 50 mg Documented by: Discontinued Medications Hydrocodone Bitart/Acetaminophen ([place] 325-10 Mg) Confirm Administered Dose 1 tab .ROUTE .STK-MED ONE Stop: 11/27/19 10:55 Last Admin: 11/27/19 15:28 Dose: Not Given Documented by: Hydrocodone Bitart/Acetaminophen ([place] 325-5 Mg) Confirm Administered Dose 1 tab .ROUTE .STK-MED ONE Stop: 11/27/19 10:56 Last Admin: 11/27/19 15:28 Dose: Not Given Documented by: Senna/Docusate Sodium (Senna Plus) 2 tab PO BID [facility] Last Admin: 11/24/19 07:56 Dose: 2 tab Documented by: Tuberculin PPD (Aplisol) 5 unit IDERM ONETIME ONE Stop: 11/22/19 08:01 Last Admin: 11/22/19 08:49 Dose: 5 unit Documented by: - Exam General: Reports: Alert, Oriented HEENT: Reports: Pupils Equal, Pupils Reactive, EOMI Lungs: Reports: Clear to Auscultation, Normal Respiratory Effort Cardiovascular: Reports: Regular Rate, Regular Rhythm GI/Abdominal Exam: Normal Bowel Sounds, Soft, Non-Tender Back Exam: Reports: Normal Inspection, Full Range of Motion Extremities: Normal Inspection, Normal Range of Motion, Non-Tender, No Pedal Edema Skin: Reports: Warm, Dry, Intact Wound/Incisions: Reports: Healing Well Neurological: Reports: No New Focal Deficit Psy/Mental Status: Reports: Alert, Normal Affect *Q Meaningful Use (DIS) - VTE *Q VTE Mechanical Contraindications *Q: At Risk for Falls VTE Pharmacological Contraindications *Q: Risk of Bleeding VTE Anticoagulation Contraindications: Alternative [place] Request PT (Patient refuses Lovenox shots on discharge, declines oral anticoagulants. Patient state s aspirin is a favorable alternative, prescription written for aspirin daily x1 month.)
== END 2019-12-05 13:34 | disposition home or self-care (01) | DRG 561 ==
LOC: LB.MS 18:15 → UNDOADMIN 18:15 → LB.MS 23:24
PROVIDERS: ADMIT Nurse Practitioner; ATTEND Registered Nurse
DX: Z47.89 Encounter for other orthopedic aftercare (principal); S72.052D Unspecified fracture of head of left femur, subsequent encounter for closed fracture with routine healing; Z79.82 Long term (current) use of aspirin; Z79.899 Other long term (current) drug therapy
CPT/HCPCS: 36415; 73502-LT; 80048; 85025; 86580; 97110-GP; 97116-GP; 97161-GP; 97165-GO; 97530-GP; 97535-GO; A9270-GY; J1650